=== PATIENT | male | born 1965 | race Two or more races ===

== ENCOUNTER 2018-06-16 11:58 | Inpatient (IN) | payer OTHER ==
[2018-06-16 12:08] VITALS: BMI 34.7
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
[2018-06-16] MEDS ORDERED: MAGNESIUM HYDROX 2400MG/30ML ORAL SUSPENSION 30 ML CUP PO PRN (13:18)
[2018-06-16] MEDS ORDERED: MAGNESIUM CITRATE 300 ML BOTTLE PO PRN (13:18)
[2018-06-16] MEDS ORDERED: LOPERAMIDE HCL 2 MG CAPSULE PO PRN (13:18)
[2018-06-16] MEDS ORDERED: MENTHOL/PHENOL 1 EACH UD MM PRN (13:18)
[2018-06-16] MEDS ORDERED: P-EPHED 60MG/TRIPROLIDI 2.5MG TABLET PO PRN (13:18)
[2018-06-16] MEDS ORDERED: IBUPROFEN 400 MG TABLET (FP) PO PRN (13:18)
[2018-06-16] MEDS ORDERED: MAG HYDROX/AL HYDROX/SIMETH 30 ML UNIT-DOSE CUP PO PRN (13:18)
[2018-06-16] MEDS ORDERED: guaiFENesin/D-METHORPHAN HB 10 ML UNIT-DOSE CUPS PO PRN (13:18)
[2018-06-16] MEDS ORDERED: ACETAMINOPHEN 325 MG TABLET (FP) PO PRN (13:18)
[2018-06-16] MEDS ORDERED: diazePAM 5 MG TABLET PO ONE (14:15)
[2018-06-16] MEDS ORDERED: METHADONE HCL 10 MG TABLET (FOR DETOX USE ONLY) PO ONE ×2 (14:15→23:00)
[2018-06-16] MEDS: BACLOFEN 10 MG TABLET (FP) PO SCH ×2 (16:24→22:26)
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
--- NOTE | 2018-06-16 18:57 | EKG ---
Test Reason : Blood Pressure : / mmHG Vent. Rate : 053 BPM Atrial Rate : 053 BPM P-R Int : 154 ms QRS Dur : 088 ms QT Int : 414 ms P-R-T Axes : 062 007 020 degrees QTc Int : 388 ms SINUS BRADYCARDIA OTHERWISE NORMAL ECG NO PREVIOUS ECGS AVAILABLE Confirmed by HEIDY ROWE, ATIYA ([id number]) on 06/16/2018 6:56:29 PM Referred By: Radha Bryan Confirmed By:ATIYA MOODY MD
[2018-06-16] MEDS: THIAMINE HCL 100 MG TABLET (FP) PO SCH (22:26)
[2018-06-16] MEDS: MELATONIN 5 MG TABLETS PO PRN (22:27)
[2018-06-16] MEDS: diazePAM 5 MG TABLET PO SCH (22:27)
[2018-06-16] MEDS: NICOTINE POLACRILEX 4 MG GUM BUC PRN (22:28)
[2018-06-16 23:02] LABS: URINE APPEARANCE TURBID; URINE BILIRUBIN NEGATIVE (<2.0 mg/dL); URINE COLOR YELLOW; URINE GLUCOSE (UA) NEGATIVE (NEGATIVE); URINE KETONE TRACE (NEGATIVE); URINE LEUK ESTERASE NEGATIVE (NEGATIVE); URINE NITRITE NEGATIVE (NEGATIVE); URINE PROTEIN NEGATIVE (NEGATIVE)
[2018-06-17] MEDS: BACLOFEN 10 MG TABLET (FP) PO SCH ×3 (05:55→22:07)
[2018-06-17] MEDS: diazePAM 5 MG TABLET PO SCH ×3 (05:55→22:07)
[2018-06-17] MEDS ORDERED: METHADONE HCL 10 MG TABLET (FOR DETOX USE ONLY) PO SCH (10:00)
[2018-06-17] MEDS: NICOTINE 21 MG/24 HOURS TOPICAL PATCH TD SCH (11:06)
[2018-06-17] MEDS: PRENATAL VITAMINS W/ FOLIC ACID TABLET (FP) PO SCH (11:06)
[2018-06-17 11:18] LABS: HEMATOCRIT 46.1 % (35.4-49); HEMOGLOBIN 14.9 GM/dL (11.7-16.9); MCH 31.5 pg (25.7-33.7); MCHC 32.3 g/dl (32.0-35.9); MEAN CELL VOLUME 97.5 fl (80-96); MEAN PLT VOLUME 10.9 fl (7.5-11.1); PLATELET COUNT 184 K/MM3 (134-434); RBC 4.73 M/mm3 (4.00-5.60); RDW 14.4 % (11.9-15.9); WHITE BLOOD COUNT 14.5 K/mm3 (4.0-10.0)
[2018-06-17 11:34] LABS: ALK PHOS 81 U/L (45-117); ANION GAP 5 MMOL/L (8-16); BILIRUBIN,TOTAL 0.4 mg/dL (0.2-1); BLOOD UREA NITROGEN 13 mg/dL (7-18); CALCIUM 9.2 mg/dL (8.5-10.1); CHLORIDE 102 mmol/L (98-107); CO2 29 mmol/L (21-32); GLUCOSE,RANDOM 115 mg/dL (74-106); POTASSIUM 4.3 mmol/L (3.5-5.1); SGOT/AST 16 U/L (15-37); SGPT/ALT 23 U/L (13-61); SODIUM 137 mmol/L (136-145); TOT PROT 7.7 g/dl (6.4-8.2)
[2018-06-17] MEDS ORDERED: NAPROXEN 500 MG TABLET (FP) PO ONE (12:00)
--- NOTE | 2018-06-17 15:56 | PN ---
[facility] CIWA - CIWA Score Nausea/Vomitin-No Nausea/No Vomiting Muscle Tremors: None Anxiety: 4-Mod. Anxious/Guarded Agitation: 4-Moderately Restless Paroxysmal Sweats: 3 Orientation: 0-Oriented Tacttile Disturbances: 3-Moderate Itch/Numb/Burn Auditory Disturbances: 1-Very Mild Visual Disturbances: 0-None Headache: 0-None Present CIWA-Ar Total Score: 15 S COWS - Scale Resting Pulse: 0= [place] 80 or Below Sweatin=Flushed/Facial Moisture Restless Observation: 1= Difficult to Sit Still Pupil Size: 0= Normal to Room Light Bone or Joint Aches: 2= Severe Diffuse Aches Runny Nose/ Eye Tearin= None GI Upset > 30mins: 0= None Tremor Observation of Outstretched Hands: 0= None Yawning Observation: 1= 1-2x During Session Anxiety or Irritability: 2=Irritable/Anxious Goose Flesh Skin: 0=Smooth Skin COWS Score: 8 S Progress Note (SOAP) Subjective: Body Aches, Sweating. Objective: PATIENT A & O X 3, OBSERVED AMBULATING ON UNIT. IN NO ACUTE DISTRESS. 06/17/18 15:53 Vital Signs Temperature 98.1 F 06/17/18 14:13 Pulse Rate 74 06/17/18 14:13 Respiratory Rate 18 06/17/18 14:13 Blood Pressure 123/76 06/17/18 14:13 O2 Sat by Pulse Oximetry (%) Laboratory Tests 06/16/18 06/17/18 06/17/18 23:10 05:45 05:45 WBC 14.5 H RBC 4.73 Hgb 14.9 Hct 46.1 MCV 97.5 H MCH 31.5 MCHC 32.3 RDW 14.4 Plt Count 184 D MPV 10.9 D Sodium Potassium Chloride Carbon Dioxide Anion Gap BUN Creatinine Creat Clearance w eGFR Random Glucose Calcium Total Bilirubin AST ALT Alkaline Phosphatase Total Protein Albumin Urine Color Yellow Urine Appearance Turbid Urine pH 5.0 Ur Specific [place] 1.027 Urine Protein Negative Urine Glucose (UA) Negative Urine Ketones Trace H Urine Blood Negative Urine Nitrite Negative Urine Bilirubin Negative Urine Urobilinogen 2.0 Ur Leukocyte Esterase Negative RPR Titer HIV 1&2 Antibody Screen Negative HIV P24 Antigen Negative 06/17/18 06/17/18 05:45 05:45 WBC RBC Hgb Hct MCV MCH MCHC RDW Plt Count MPV Sodium 137 Potassium 4.3 Chloride 102 Carbon Dioxide 29 Anion Gap 5 L BUN 13 Creatinine 1.0 Creat Clearance w eGFR > 60 Random Glucose 115 H Calcium 9.2 Total Bilirubin 0.4 AST 16 ALT 23 Alkaline Phosphatase 81 Total Protein 7.7 Albumin 4.0 Urine Color Urine Appearance Urine pH Ur Specific [place] Urine Protein Urine Glucose (UA) Urine Ketones Urine Blood Urine Nitrite Urine Bilirubin Urine Urobilinogen Ur Leukocyte Esterase RPR Titer Nonreactive HIV 1&2 Antibody Screen HIV P24 Antigen LABS NOTED. HCV AB RESULT PENDING. 06/17/18 15:55 Assessment: 06/17/18 15:53 WITHDRAWAL SYMPTOMS. LEUKOCYTOSIS. 06/17/18 15:55 Plan: CONTINUE DETOX. REPEAT CBC TOMORROW AM FOR ELEVATED ADMISSION WBC LEVEL.
[2018-06-17] MEDS: THIAMINE HCL 100 MG TABLET (FP) PO SCH (22:07)
[2018-06-17] MEDS: NAPROXEN 500 MG TABLET (FP) PO SCH (22:07)
[2018-06-18] MEDS: diazePAM 5 MG TABLET PO PRN (03:40)
[2018-06-18] MEDS: BACLOFEN 10 MG TABLET (FP) PO SCH ×3 (05:59→22:01)
[2018-06-18] MEDS: hydrOXYzine PAMOATE 50 MG CAPSULE (FP) PO PRN (06:01)
[2018-06-18] MEDS: NICOTINE POLACRILEX 4 MG GUM BUC PRN (06:02)
[2018-06-18 10:39] LABS: BASO % 0.4 % (0-2.0); HEMATOCRIT 41.5 % (35.4-49); HEMOGLOBIN 14.6 GM/dL (11.7-16.9); LYMPH % 30.7 % (8-40); MCH 33.5 pg (25.7-33.7); MCHC 35.2 g/dl (32.0-35.9); MEAN CELL VOLUME 95.1 fl (80-96); MEAN PLT VOLUME 11.2 fl (7.5-11.1); MONO % 8.2 % (3.8-10.2); NEUT % 58.7 % (42.8-82.8); PLATELET COUNT 182 K/MM3 (134-434); RBC 4.36 M/mm3 (4.00-5.60); RDW 14.6 % (11.9-15.9); WHITE BLOOD COUNT 9.4 K/mm3 (4.0-10.0)
[2018-06-18] MEDS: NICOTINE 21 MG/24 HOURS TOPICAL PATCH TD SCH (10:47)
[2018-06-18] MEDS: PRENATAL VITAMINS W/ FOLIC ACID TABLET (FP) PO SCH (10:47)
[2018-06-18] MEDS: NAPROXEN 500 MG TABLET (FP) PO SCH ×2 (10:47→22:01)
[2018-06-18] MEDS: METHADONE HCL 5 MG TABLET (FOR DETOX USE ONLY) PO SCH (10:48)
[2018-06-18] MEDS: diazePAM 5 MG TABLET PO SCH ×2 (10:48→22:01)
--- NOTE | 2018-06-18 14:44 | PN ---
[facility] CIWA - CIWA Score Nausea/Vomitin-Mild Nausea/No Vomiting Muscle Tremors: 2 Anxiety: 3 Agitation: 2 Paroxysmal Sweats: 2 Orientation: 0-Oriented Tacttile Disturbances: 0-None Auditory Disturbances: 0-None Visual Disturbances: 0-None Headache: 1-Very Mild CIWA-Ar Total Score: 11 S COWS - Scale Resting Pulse: 0= [place] 80 or Below Sweatin= Chills/Flushing Restless Observation: 1= Difficult to Sit Still Pupil Size: 0= Normal to Room Light Bone or Joint Aches: 2= Severe Diffuse Aches Runny Nose/ Eye Tearin= Runny Nose/Eyes GI Upset > 30mins: 1= Stomach Cramp Tremor Observation of Outstretched Hands: 2= Slight Tremor Visible Yawning Observation: 0= None Anxiety or Irritability: 2=Irritable/Anxious Goose Flesh Skin: 0=Smooth Skin COWS Score: 11 [facility] Progress Note (SOAP) Subjective: Chills, sweating, interrupted sleep Objective: 06/18/18 14:42 Last Vital Signs Temp Pulse Resp BP Pulse Ox 97.5 F L 58 L 18 123/70 06/18/18 13:23 06/18/18 13:23 06/18/18 13:23 06/18/18 13:23 Laboratory Tests 06/16/18 06/17/18 06/17/18 23:10 05:45 05:45 WBC 14.5 H RBC 4.73 Hgb 14.9 Hct 46.1 MCV 97.5 H MCH 31.5 MCHC 32.3 RDW 14.4 Plt Count 184 D MPV 10.9 D Absolute Neuts (auto) Neutrophils % Lymphocytes % Monocytes % Eosinophils % Basophils % Nucleated RBC % Sodium Potassium Chloride Carbon Dioxide Anion Gap BUN Creatinine Creat Clearance w eGFR Random Glucose Calcium Total Bilirubin AST ALT Alkaline Phosphatase Total Protein Albumin Urine Color Yellow Urine Appearance Turbid Urine pH 5.0 Ur Specific [place] 1.027 Urine Protein Negative Urine Glucose (UA) Negative Urine Ketones Trace H Urine Blood Negative Urine Nitrite Negative Urine Bilirubin Negative Urine Urobilinogen 2.0 Ur Leukocyte Esterase Negative RPR Titer Hep C Ab Diagnostic HIV 1&2 Antibody Screen Negative HIV P24 Antigen Negative 06/17/18 06/17/18 06/17/18 05:45 05:45 06:13 WBC RBC Hgb Hct MCV MCH MCHC RDW Plt Count MPV Absolute Neuts (auto) Neutrophils % Lymphocytes % Monocytes % Eosinophils % Basophils % Nucleated RBC % Sodium 137 Potassium 4.3 Chloride 102 Carbon Dioxide 29 Anion Gap 5 L BUN 13 Creatinine 1.0 Creat Clearance w eGFR > 60 Random Glucose 115 H Calcium 9.2 Total Bilirubin 0.4 AST 16 ALT 23 Alkaline Phosphatase 81 Total Protein 7.7 Albumin 4.0 Urine Color Urine Appearance Urine pH Ur Specific [place] Urine Protein Urine Glucose (UA) Urine Ketones Urine Blood Urine Nitrite Urine Bilirubin Urine Urobilinogen Ur Leukocyte Esterase RPR Titer Nonreactive Hep C Ab Diagnostic 0.2 HIV 1&2 Antibody Screen HIV P24 Antigen 06/18/18 07:30 WBC 9.4 RBC 4.36 Hgb 14.6 Hct 41.5 MCV 95.1 MCH 33.5 MCHC 35.2 RDW 14.6 Plt Count 182 MPV 11.2 H Absolute Neuts (auto) 5.5 Neutrophils % 58.7 Lymphocytes % 30.7 Monocytes % 8.2 Eosinophils % 2.0 Basophils % 0.4 Nucleated RBC % 0 Sodium Potassium Chloride Carbon Dioxide Anion Gap BUN Creatinine Creat Clearance w eGFR Random Glucose Calcium Total Bilirubin AST ALT Alkaline Phosphatase Total Protein Albumin Urine Color Urine Appearance Urine pH Ur Specific [place] Urine Protein Urine Glucose (UA) Urine Ketones Urine Blood Urine Nitrite Urine Bilirubin Urine Urobilinogen Ur Leukocyte Esterase RPR Titer Hep C Ab Diagnostic HIV 1&2 Antibody Screen HIV P24 Antigen Labs reviewed Assessment: 06/18/18 14:43 Withdrawal symptoms Plan: Continue detox Encouraged PO water intake
[2018-06-18] MEDS: THIAMINE HCL 100 MG TABLET (FP) PO SCH (22:01)
[2018-06-19] MEDS: diazePAM 5 MG TABLET PO PRN ×2 (02:00→13:18)
[2018-06-19] MEDS: BACLOFEN 10 MG TABLET (FP) PO SCH ×3 (07:52→22:31)
--- NOTE | 2018-06-19 10:18 | PN ---
S Progress Note (SOAP) Subjective: anxiety body aches tremor irritable Objective: 06/19/18 10:17 Vital Signs Temperature 97.5 F L 06/19/18 09:24 Pulse Rate 62 06/19/18 09:24 Respiratory Rate 18 06/19/18 09:24 Blood Pressure 112/72 06/19/18 09:24 O2 Sat by Pulse Oximetry (%) Laboratory Last Values WBC 9.4 K/mm3 (4.0-10.0) 06/18/18 07:30 RBC 4.36 M/mm3 (4.00-5.60) 06/18/18 07:30 Hgb 14.6 GM/dL (11.7-16.9) 06/18/18 07:30 Hct 41.5 % (35.4-49) 06/18/18 07:30 MCV 95.1 fl (80-96) 06/18/18 07:30 MCH 33.5 pg (25.7-33.7) 06/18/18 07:30 MCHC 35.2 g/dl (32.0-35.9) 06/18/18 07:30 RDW 14.6 % (11.9-15.9) 06/18/18 07:30 Plt Count 182 K/MM3 (134-434) 06/18/18 07:30 MPV 11.2 fl (7.5-11.1) H 06/18/18 07:30 Absolute Neuts (auto) 5.5 K/mm3 (1.5-8.0) 06/18/18 07:30 Neutrophils % 58.7 % (42.8-82.8) 06/18/18 07:30 Lymphocytes % 30.7 % (8-40) 06/18/18 07:30 Monocytes % 8.2 % (3.8-10.2) 06/18/18 07:30 Eosinophils % 2.0 % (0-4.5) 06/18/18 07:30 Basophils % 0.4 % (0-2.0) 06/18/18 07:30 Nucleated RBC % 0 % (0-0) 06/18/18 07:30 Sodium 137 mmol/L (136-145) 06/17/18 05:45 Potassium 4.3 mmol/L (3.5-5.1) 06/17/18 05:45 Chloride 102 mmol/L (98-107) 06/17/18 05:45 Carbon Dioxide 29 mmol/L (21-32) 06/17/18 05:45 Anion Gap 5 MMOL/L (8-16) L 06/17/18 05:45 BUN 13 mg/dL (7-18) 06/17/18 05:45 Creatinine 1.0 mg/dL (0.55-1.3) 06/17/18 05:45 Creat Clearance w eGFR > 60 (>60) 06/17/18 05:45 Random Glucose 115 mg/dL (74-106) H 06/17/18 05:45 Calcium 9.2 mg/dL (8.5-10.1) 06/17/18 05:45 Total Bilirubin 0.4 mg/dL (0.2-1) 06/17/18 05:45 AST 16 U/L (15-37) 06/17/18 05:45 ALT 23 U/L (13-61) 06/17/18 05:45 Alkaline Phosphatase 81 U/L (45-117) 06/17/18 05:45 Total Protein 7.7 g/dl (6.4-8.2) 06/17/18 05:45 Albumin 4.0 g/dl (3.4-5.0) 06/17/18 05:45 Urine Color Yellow 06/16/18 23:10 Urine Appearance Turbid 06/16/18 23:10 Urine pH 5.0 (5.0-8.0) 06/16/18 23:10 Ur Specific [place] 1.027 (1.010-1.035) 06/16/18 23:10 Urine Protein Negative (NEGATIVE) 06/16/18 23:10 Urine Glucose (UA) Negative (NEGATIVE) 06/16/18 23:10 Urine Ketones Trace (NEGATIVE) H 06/16/18 23:10 Urine Blood Negative (NEGATIVE) 06/16/18 23:10 Urine Nitrite Negative (NEGATIVE) 06/16/18 23:10 Urine Bilirubin Negative (<2.0 mg/dL) 06/16/18 23:10 Urine Urobilinogen 2.0 mg/dL (0.2-1.0) 06/16/18 23:10 Ur Leukocyte Esterase Negative (NEGATIVE) 06/16/18 23:10 RPR Titer Nonreactive (NONREACTIVE) 06/17/18 05:45 Hep C Ab Diagnostic 0.2 s/co ratio (0.0-0.9) 06/17/18 06:13 HIV 1&2 Antibody Screen Negative 06/17/18 05:45 HIV P24 Antigen Negative 06/17/18 05:45 lab noted Assessment: 06/19/18 10:18 alcohol and opiate withdrawal sx Plan: continue detox
[2018-06-19] MEDS: NICOTINE 21 MG/24 HOURS TOPICAL PATCH TD SCH (10:22)
[2018-06-19] MEDS: diazePAM 5 MG TABLET PO SCH ×2 (10:23→22:30)
[2018-06-19] MEDS: NAPROXEN 500 MG TABLET (FP) PO SCH ×2 (10:23→22:30)
[2018-06-19] MEDS: PRENATAL VITAMINS W/ FOLIC ACID TABLET (FP) PO SCH (10:23)
[2018-06-19] MEDS: METHADONE HCL 5 MG TABLET (FOR DETOX USE ONLY) PO SCH (10:23)
[2018-06-19] MEDS ORDERED: COLLOIDAL OATMEAL 1 BAR EACH TP PRN (13:36)
[2018-06-19] MEDS: hydrOXYzine PAMOATE 50 MG CAPSULE (FP) PO PRN (18:28)
[2018-06-19] MEDS: THIAMINE HCL 100 MG TABLET (FP) PO SCH (22:31)
[2018-06-19] MEDS: MELATONIN 5 MG TABLETS PO PRN (22:31)
[2018-06-20] MEDS: hydrOXYzine PAMOATE 50 MG CAPSULE (FP) PO PRN ×2 (02:58→13:27)
[2018-06-20] MEDS: BACLOFEN 10 MG TABLET (FP) PO SCH ×3 (06:17→22:19)
[2018-06-20] MEDS ORDERED: diazePAM 5 MG TABLET PO SCH (10:00)
[2018-06-20] MEDS ORDERED: METHADONE HCL 10 MG TABLET (FOR DETOX USE ONLY) PO SCH (10:00)
[2018-06-20] MEDS: NAPROXEN 500 MG TABLET (FP) PO SCH ×2 (10:31→22:18)
[2018-06-20] MEDS: PRENATAL VITAMINS W/ FOLIC ACID TABLET (FP) PO SCH (10:31)
[2018-06-20] MEDS: NICOTINE 21 MG/24 HOURS TOPICAL PATCH TD SCH (10:31)
--- NOTE | 2018-06-20 15:28 | PN ---
[facility] Progress Note (SOAP) Subjective: Body Aches. Objective: PATIENT A & O X 3, OBSERVED AMBULATING ON UNIT. IN NO ACUTE DISTRESS. 06/20/18 15:27 Vital Signs Temperature 99.1 F 06/20/18 13:25 Pulse Rate 72 06/20/18 13:25 Respiratory Rate 18 06/20/18 13:25 Blood Pressure 100/72 06/20/18 13:25 O2 Sat by Pulse Oximetry (%) Laboratory Tests 06/16/18 06/17/18 06/17/18 23:10 05:45 05:45 WBC 14.5 H RBC 4.73 Hgb 14.9 Hct 46.1 MCV 97.5 H MCH 31.5 MCHC 32.3 RDW 14.4 Plt Count 184 D MPV 10.9 D Absolute Neuts (auto) Neutrophils % Lymphocytes % Monocytes % Eosinophils % Basophils % Nucleated RBC % Sodium Potassium Chloride Carbon Dioxide Anion Gap BUN Creatinine Creat Clearance w eGFR Random Glucose Calcium Total Bilirubin AST ALT Alkaline Phosphatase Total Protein Albumin Urine Color Yellow Urine Appearance Turbid Urine pH 5.0 Ur Specific [place] 1.027 Urine Protein Negative Urine Glucose (UA) Negative Urine Ketones Trace H Urine Blood Negative Urine Nitrite Negative Urine Bilirubin Negative Urine Urobilinogen 2.0 Ur Leukocyte Esterase Negative RPR Titer Hep C Ab Diagnostic HIV 1&2 Antibody Screen Negative HIV P24 Antigen Negative 06/17/18 06/17/18 06/17/18 05:45 05:45 06:13 WBC RBC Hgb Hct MCV MCH MCHC RDW Plt Count MPV Absolute Neuts (auto) Neutrophils % Lymphocytes % Monocytes % Eosinophils % Basophils % Nucleated RBC % Sodium 137 Potassium 4.3 Chloride 102 Carbon Dioxide 29 Anion Gap 5 L BUN 13 Creatinine 1.0 Creat Clearance w eGFR > 60 Random Glucose 115 H Calcium 9.2 Total Bilirubin 0.4 AST 16 ALT 23 Alkaline Phosphatase 81 Total Protein 7.7 Albumin 4.0 Urine Color Urine Appearance Urine pH Ur Specific [place] Urine Protein Urine Glucose (UA) Urine Ketones Urine Blood Urine Nitrite Urine Bilirubin Urine Urobilinogen Ur Leukocyte Esterase RPR Titer Nonreactive Hep C Ab Diagnostic 0.2 HIV 1&2 Antibody Screen HIV P24 Antigen 06/18/18 07:30 WBC 9.4 RBC 4.36 Hgb 14.6 Hct 41.5 MCV 95.1 MCH 33.5 MCHC 35.2 RDW 14.6 Plt Count 182 MPV 11.2 H Absolute Neuts (auto) 5.5 Neutrophils % 58.7 Lymphocytes % 30.7 Monocytes % 8.2 Eosinophils % 2.0 Basophils % 0.4 Nucleated RBC % 0 Sodium Potassium Chloride Carbon Dioxide Anion Gap BUN Creatinine Creat Clearance w eGFR Random Glucose Calcium Total Bilirubin AST ALT Alkaline Phosphatase Total Protein Albumin Urine Color Urine Appearance Urine pH Ur Specific [place] Urine Protein Urine Glucose (UA) Urine Ketones Urine Blood Urine Nitrite Urine Bilirubin Urine Urobilinogen Ur Leukocyte Esterase RPR Titer Hep C Ab Diagnostic HIV 1&2 Antibody Screen HIV P24 Antigen LABS NOTED. WBC NOTED TO BE WITHIN NORMAL LIMITS ON REPEAT CBC. Assessment: 06/20/18 15:28 WITHDRAWAL SYMPTOMS. Plan: CONTINUE DETOX.
[2018-06-20] MEDS: THIAMINE HCL 100 MG TABLET (FP) PO SCH (22:19)
[2018-06-20] MEDS: MELATONIN 5 MG TABLETS PO PRN (22:19)
[2018-06-21] MEDS: BACLOFEN 10 MG TABLET (FP) PO SCH (05:23)
[2018-06-21] MEDS ORDERED: METHADONE HCL 5 MG TABLET (FOR DETOX USE ONLY) PO SCH (06:00)
[2018-06-21 06:08] VITALS: BP 114/67; PULSE 47; TEMP 97.5
--- NOTE | 2018-06-21 09:32 | DS ---
[facility] Detox Discharge Summary Admission Date: 06/16/18 Discharge Date: 06/21/18 - History Present History: Alcohol Dependence, Opioid Dependence Additional Comments: 52 years old male admitted o 06/16/18 for alcohol and opiate withdrawal stabilization completed detox regimen tolerated well alert no acute distress aftercare as per counselor arrangement - Physical Exam Results Vital Signs: Vital Signs Temperature 97.5 F L 06/21/18 06:08 Pulse Rate 47 L 06/21/18 06:08 Respiratory Rate 18 06/21/18 06:08 Blood Pressure 114/67 06/21/18 06:08 O2 Sat by Pulse Oximetry (%) Pertinent Admission Physical Exam Findings: alcohol and opiate withdrawal sx Laboratory Last Values WBC 9.4 K/mm3 (4.0-10.0) 06/18/18 07:30 RBC 4.36 M/mm3 (4.00-5.60) 06/18/18 07:30 Hgb 14.6 GM/dL (11.7-16.9) 06/18/18 07:30 Hct 41.5 % (35.4-49) 06/18/18 07:30 MCV 95.1 fl (80-96) 06/18/18 07:30 MCH 33.5 pg (25.7-33.7) 06/18/18 07:30 MCHC 35.2 g/dl (32.0-35.9) 06/18/18 07:30 RDW 14.6 % (11.9-15.9) 06/18/18 07:30 Plt Count 182 K/MM3 (134-434) 06/18/18 07:30 MPV 11.2 fl (7.5-11.1) H 06/18/18 07:30 Absolute Neuts (auto) 5.5 K/mm3 (1.5-8.0) 06/18/18 07:30 Neutrophils % 58.7 % (42.8-82.8) 06/18/18 07:30 Lymphocytes % 30.7 % (8-40) 06/18/18 07:30 Monocytes % 8.2 % (3.8-10.2) 06/18/18 07:30 Eosinophils % 2.0 % (0-4.5) 06/18/18 07:30 Basophils % 0.4 % (0-2.0) 06/18/18 07:30 Nucleated RBC % 0 % (0-0) 06/18/18 07:30 Sodium 137 mmol/L (136-145) 06/17/18 05:45 Potassium 4.3 mmol/L (3.5-5.1) 06/17/18 05:45 Chloride 102 mmol/L (98-107) 06/17/18 05:45 Carbon Dioxide 29 mmol/L (21-32) 06/17/18 05:45 Anion Gap 5 MMOL/L (8-16) L 06/17/18 05:45 BUN 13 mg/dL (7-18) 06/17/18 05:45 Creatinine 1.0 mg/dL (0.55-1.3) 06/17/18 05:45 Creat Clearance w eGFR > 60 (>60) 06/17/18 05:45 Random Glucose 115 mg/dL (74-106) H 06/17/18 05:45 Calcium 9.2 mg/dL (8.5-10.1) 06/17/18 05:45 Total Bilirubin 0.4 mg/dL (0.2-1) 06/17/18 05:45 AST 16 U/L (15-37) 06/17/18 05:45 ALT 23 U/L (13-61) 06/17/18 05:45 Alkaline Phosphatase 81 U/L (45-117) 06/17/18 05:45 Total Protein 7.7 g/dl (6.4-8.2) 06/17/18 05:45 Albumin 4.0 g/dl (3.4-5.0) 06/17/18 05:45 Urine Color Yellow 06/16/18 23:10 Urine Appearance Turbid 06/16/18 23:10 Urine pH 5.0 (5.0-8.0) 06/16/18 23:10 Ur Specific [place] 1.027 (1.010-1.035) 06/16/18 23:10 Urine Protein Negative (NEGATIVE) 06/16/18 23:10 Urine Glucose (UA) Negative (NEGATIVE) 06/16/18 23:10 Urine Ketones Trace (NEGATIVE) H 06/16/18 23:10 Urine Blood Negative (NEGATIVE) 06/16/18 23:10 Urine Nitrite Negative (NEGATIVE) 06/16/18 23:10 Urine Bilirubin Negative (<2.0 mg/dL) 06/16/18 23:10 Urine Urobilinogen 2.0 mg/dL (0.2-1.0) 06/16/18 23:10 Ur Leukocyte Esterase Negative (NEGATIVE) 06/16/18 23:10 RPR Titer Nonreactive (NONREACTIVE) 06/17/18 05:45 Hep C Ab Diagnostic 0.2 s/co ratio (0.0-0.9) 06/17/18 06:13 HIV 1&2 Antibody Screen Negative 06/17/18 05:45 HIV P24 Antigen Negative 06/17/18 05:45 lab noted - Treatment Hospital Course: Detox Protocol Followed, Detoxed Safely, Responded well, Discharged Condition Good, Rehab Referral Accepted Patient has Accepted a Rehab Referral to: as per counselor arrangement - Medication Discharge Medications: Ambulatory Orders NK [No Known Home Medication] 06/16/18 - Diagnosis (1) Nicotine dependence Status: Acute Qualifiers: Nicotine product type: cigarettes Substance use status: in withdrawal Qualified Code(s): F17.213 - Nicotine dependence, cigarettes, with withdrawal (2) Opioid dependence with withdrawal Status: Acute (3) Substance induced mood disorder Status: Suspected - AMA Did Patient Leave Against Medical Advice: No
== END 2018-06-21 08:40 | disposition home or self-care (01) | DRG 773 ==
LOC: YASAS 11:58 → Y3N 13:33
PROC: HZ2ZZZZ Detoxification Services for Substance Abuse Treatment (ICD-10-PCS; principal; 2018-06-16)
DX: F11.23 Opioid dependence with withdrawal (principal); F10.230 Alcohol dependence with withdrawal, uncomplicated; F17.213 Nicotine dependence, cigarettes, with withdrawal; F19.24 Other psychoactive substance dependence with psychoactive substance-induced mood disorder; F31.81 Bipolar II disorder; D72.829 Elevated white blood cell count, unspecified
CPT/HCPCS: 36415; 80053; 81003; 85025; 85027; 86593; 86803; 87389; 93005; 93010; J0475

== ENCOUNTER 2018-09-15 15:45 | Inpatient (IN) | payer OTHER ==
[2018-09-15 17:14] VITALS: BMI 33.6
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
[2018-09-15] MEDS ORDERED: chlordiazePOXIDE HCL 10 MG CAPSULE PO PRN (21:17)
[2018-09-15] MEDS ORDERED: DICYCLOMINE HCL 10 MG CAPSULE PO PRN (21:17)
[2018-09-15] MEDS ORDERED: MAGNESIUM CITRATE 300 ML BOTTLE PO PRN (21:17)
[2018-09-15] MEDS ORDERED: MENTHOL/PHENOL 1 EACH UD MM PRN (21:17)
[2018-09-15] MEDS ORDERED: hydrOXYzine PAMOATE 25 MG CAPSULE (FP) PO PRN (21:17)
[2018-09-15] MEDS ORDERED: MAGNESIUM HYDROX 2400MG/30ML ORAL SUSPENSION 30 ML CUP PO PRN (21:17)
[2018-09-15] MEDS ORDERED: ACETAMINOPHEN 325 MG TABLET (FP) PO PRN ×2 (21:17)
[2018-09-15] MEDS ORDERED: ONDANSETRON *ODT* 4 MG TABLET SL PRN (21:17)
[2018-09-15] MEDS ORDERED: MAG HYDROX/AL HYDROX/SIMETH 30 ML UNIT-DOSE CUP PO PRN (21:17)
[2018-09-15] MEDS ORDERED: NALOXONE HCL 0.4 MG/ML VIAL IVPUSH PRN (21:17)
[2018-09-15] MEDS ORDERED: IBUPROFEN 400 MG TABLET (FP) PO PRN (21:17)
[2018-09-15] MEDS ORDERED: NICOTINE POLACRILEX 2 MG GUM BUC PRN (21:17)
[2018-09-15] MEDS ORDERED: P-EPHED 60MG/TRIPROLIDI 2.5MG TABLET PO PRN (21:17)
[2018-09-15] MEDS ORDERED: METHOCARBAMOL 500 MG TABLET PO PRN (21:17)
[2018-09-15] MEDS ORDERED: BISMUTH SUBSALICYLATE 524 MG/30 ML UD PO PRN (21:17)
[2018-09-15] MEDS ORDERED: MELATONIN 5 MG TABLETS PO PRN (21:17)
[2018-09-15] MEDS: chlordiazePOXIDE HCL 25 MG CAPSULE PO SCH (22:17)
[2018-09-15] MEDS: THIAMINE HCL 100 MG TABLET (FP) PO SCH (22:48)
[2018-09-15] MEDS ORDERED: METHADONE HCL 10 MG TABLET (FOR DETOX USE ONLY) PO ONE (23:00)
[2018-09-16] MEDS: chlordiazePOXIDE HCL 25 MG CAPSULE PO SCH ×2 (05:27→14:38)
[2018-09-16] MEDS ORDERED: METHADONE HCL 10 MG TABLET (FOR DETOX USE ONLY) PO ONE (10:00)
[2018-09-16] MEDS: PRENATAL VITAMINS W/ FOLIC ACID TABLET (FP) PO SCH (10:28)
[2018-09-16] MEDS: NICOTINE 14 MG/24 HOURS TOPICAL PATCH TD SCH (10:29)
--- NOTE | 2018-09-16 16:41 | PN ---
[facility] CIWA - CIWA Score Nausea/Vomitin-Mild Nausea/No Vomiting Muscle Tremors: 3 Anxiety: 2 Agitation: 2 Paroxysmal Sweats: 3 Orientation: 0-Oriented Tacttile Disturbances: 0-None Auditory Disturbances: 0-None Visual Disturbances: 0-None Headache: 0-None Present CIWA-Ar Total Score: 11 S COWS - Scale Resting Pulse: 0= [place] 80 or Below Sweatin=Flushed/Facial Moisture Restless Observation: 0= Sits Still Pupil Size: 0= Normal to Room Light Bone or Joint Aches: 1= Mild Discomfort Runny Nose/ Eye Tearin= Nasal Congestion GI Upset > 30mins: 1= Stomach Cramp Tremor Observation of Outstretched Hands: 2= Slight Tremor Visible Yawning Observation: 0= None Anxiety or Irritability: 1=Feels Anxious/Irritable Goose Flesh Skin: 0=Smooth Skin COWS Score: 8 [facility] Progress Note (SOAP) Subjective: sweats abd cramp Objective: 09/16/18 16:39 A & O x 3 in bed, noted to have taken off his scrubs due to sweats no acute distress noted Vital Signs Temperature 98.6 F 09/16/18 13:55 Pulse Rate 67 09/16/18 13:55 Respiratory Rate 18 09/16/18 13:55 Blood Pressure 134/74 09/16/18 13:55 O2 Sat by Pulse Oximetry (%) No lab results at this time Assessment: 09/16/18 16:55 withdrawal sx Plan: labs ordered for a.m
--- NOTE | 2018-09-16 17:09 | CONSULT ---
[facility] Psychiatric Consult - Data Date of interview: 09/16/18 Admission source: [facility] Identifying data: Patient is approached at bedside for psychiatric evaluation. Mr Najera declines. Nursing staff is made aware.
[2018-09-16] MEDS: THIAMINE HCL 100 MG TABLET (FP) PO SCH (22:18)
[2018-09-16] MEDS: chlordiazePOXIDE 5 MG CAPSULE PO SCH (22:18)
[2018-09-17] MEDS: chlordiazePOXIDE 5 MG CAPSULE PO SCH ×2 (06:15→14:48)
[2018-09-17] MEDS: cloNIDine HCL 0.1 MG TABLET PO PRN ×2 (07:33→17:55)
[2018-09-17] MEDS ORDERED: METHADONE HCL 10 MG TABLET (FOR DETOX USE ONLY) PO ONE (10:00)
[2018-09-17] MEDS: PRENATAL VITAMINS W/ FOLIC ACID TABLET (FP) PO SCH (10:38)
[2018-09-17] MEDS: NICOTINE 14 MG/24 HOURS TOPICAL PATCH TD SCH (10:39)
--- NOTE | 2018-09-17 10:51 | PN ---
[facility] CIWA - CIWA Score Nausea/Vomitin-No Nausea/No Vomiting Muscle Tremors: 2 Anxiety: 2 Agitation: 1-Slight > Activity Paroxysmal Sweats: 1-Minimal Palms Moist Orientation: 0-Oriented Tacttile Disturbances: 0-None Auditory Disturbances: 0-None Visual Disturbances: 0-None Headache: 1-Very Mild CIWA-Ar Total Score: 7 S COWS - Scale Resting Pulse: 0= [place] 80 or Below Sweatin= Chills/Flushing Restless Observation: 0= Sits Still Pupil Size: 0= Normal to Room Light Bone or Joint Aches: 1= Mild Discomfort Runny Nose/ Eye Tearin= None GI Upset > 30mins: 0= None Tremor Observation of Outstretched Hands: 1= Tremor [place], Not Seen Yawning Observation: 0= None Anxiety or Irritability: 1=Feels Anxious/Irritable Goose Flesh Skin: 0=Smooth Skin COWS Score: 4 [facility] Progress Note (SOAP) Subjective: feeling ok discuss medication assisted treatment maintenance program Objective: 09/17/18 10:51 Vital Signs Temperature 98.6 F 09/17/18 09:50 Pulse Rate 64 09/17/18 09:50 Respiratory Rate 18 09/17/18 09:50 Blood Pressure 132/83 09/17/18 09:50 O2 Sat by Pulse Oximetry (%) lab see 06/201809/17/18 10:53 Assessment: 09/17/18 10:54 withdrawal sx Plan: continue detox
[2018-09-17] MEDS ORDERED: chlordiazePOXIDE HCL 10 MG CAPSULE PO PRN (21:00)
[2018-09-17] MEDS: chlordiazePOXIDE HCL 10 MG CAPSULE PO SCH (22:00)
[2018-09-17] MEDS: THIAMINE HCL 100 MG TABLET (FP) PO SCH (22:43)
[2018-09-18] MEDS: chlordiazePOXIDE HCL 10 MG CAPSULE PO SCH (06:47)
[2018-09-18 09:03] VITALS: BP 125/68; PULSE 69; TEMP 97.3
[2018-09-18] MEDS ORDERED: METHADONE HCL 10 MG TABLET (FOR DETOX USE ONLY) PO ONE (10:00)
[2018-09-18] MEDS: PRENATAL VITAMINS W/ FOLIC ACID TABLET (FP) PO SCH (10:18)
[2018-09-18] MEDS: NICOTINE 14 MG/24 HOURS TOPICAL PATCH TD SCH (10:18)
--- NOTE | 2018-09-18 17:22 | PN ---
[facility] Progress Note (SOAP) Subjective: Anxious, Body Aches, Restless. Objective: PATIENT A & O X 3, OBSERVED AMBULATING ON UNIT. IN NO ACUTE DISTRESS. 09/18/18 17:20 Vital Signs Temperature 97.3 F L 09/18/18 09:02 Pulse Rate 69 09/18/18 09:02 Respiratory Rate 18 09/18/18 09:02 Blood Pressure 125/68 09/18/18 09:02 O2 Sat by Pulse Oximetry (%) PATIENT REFUSED TO HAVE ADMISSION LABS DRAWN. 09/18/18 17:21 Assessment: 09/18/18 17:21 WITHDRAWAL SYMPTOMS. Plan: CONTINUE DETOX.
--- NOTE | 2018-09-18 17:26 | DS ---
[facility] Detox Discharge Summary Admission Date: 09/15/18 Discharge Date: 09/18/18 - History Present History: Alcohol Dependence, Opioid Dependence Additional Comments: PATIENT DOES NOT WISH TO REMAIN TO COMPLETE DETOX REGIMEN. RISKS OF LEAVING DETOX UNIT AGAINST MEDICAL ADVICE AND PRIOR TO COMPLETION OF DETOX REGIMEN EXPLAINED TO PATIENT. PATIENT ADVISED TO GO IMMEDIATELY TO NEAREST ER SHOULD ANY INTOLERABLE WITHDRAWAL / DETOX SYMPTOMS DEVELOP AT ANY TIME. PATIENT VERBALIZED UNDERSTANDING OF ALL INFORMATION / RECOMMENDATIONS PRESENTED TO HIM PRIOR TO DEPARTURE FROM DETOX UNIT. PATIENT LEFT DETOX UNIT IN STABLE MEDICAL CONDITION. Pertinent Past History: Depression, Bipolar II Disorder, P.T.S.D., Anxiety. - Physical Exam Results Vital Signs: Vital Signs Temperature 97.3 F L 09/18/18 09:02 Pulse Rate 69 09/18/18 09:02 Respiratory Rate 18 09/18/18 09:02 Blood Pressure 125/68 09/18/18 09:02 O2 Sat by Pulse Oximetry (%) Pertinent Admission Physical Exam Findings: WITHDRAWAL SYMPTOMS. PATIENT REFUSED TO HAVE ADMISSION LABS DRAWN. - Treatment Hospital Course: Detox Protocol Followed, Detoxed Safely - Medication Discharge Medications: Ambulatory Orders NK [No Known Home Medication] 06/16/18 - Diagnosis (1) Alcohol dependence with uncomplicated withdrawal Status: Acute (2) Nicotine dependence Status: Acute Qualifiers: Nicotine product type: cigarettes Substance use status: in withdrawal Qualified Code(s): F17.213 - Nicotine dependence, cigarettes, with withdrawal (3) Opioid dependence with withdrawal Status: Acute (4) Bipolar II disorder Status: Chronic (5) Cocaine dependence Status: Chronic Qualifiers: Substance use status: uncomplicated Qualified Code(s): F14.20 - Cocaine dependence, uncomplicated (6) Substance induced mood disorder Status: Suspected - AMA Did Patient Leave Against Medical Advice: Yes (PATIENT DID NOT WISH TO REMAIN TO COMPLETE DETOX REGIMEN.)
[2018-09-19] MEDS ORDERED: METHADONE HCL 5 MG TABLET (FOR DETOX USE ONLY) PO ONE (06:00)
== END 2018-09-18 10:18 | disposition left against medical advice (07) | DRG 770 ==
LOC: YASAS 15:45 → Y3N 21:16
PROVIDERS: ADMIT Surgery; ATTEND Surgery
PROC: HZ2ZZZZ Detoxification Services for Substance Abuse Treatment (ICD-10-PCS; principal; 2018-09-15)
DX: F11.23 Opioid dependence with withdrawal (principal); F10.230 Alcohol dependence with withdrawal, uncomplicated; F14.20 Cocaine dependence, uncomplicated; F17.213 Nicotine dependence, cigarettes, with withdrawal; F31.81 Bipolar II disorder; F19.24 Other psychoactive substance dependence with psychoactive substance-induced mood disorder
CPT/HCPCS: J0735

== ENCOUNTER 2019-03-09 13:13 | Inpatient (IN) | payer OTHER ==
[2019-03-09 19:30] VITALS: BMI 34.2
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
[2019-03-09] MEDS ORDERED: MAGNESIUM CITRATE 300 ML BOTTLE PO PRN (21:11)
[2019-03-09] MEDS ORDERED: P-EPHED 60MG/TRIPROLIDI 2.5MG TABLET PO PRN (21:11)
[2019-03-09] MEDS ORDERED: ONDANSETRON *ODT* 4 MG TABLET SL PRN (21:11)
[2019-03-09] MEDS ORDERED: MAGNESIUM HYDROX 2400MG/30ML ORAL SUSPENSION 30 ML CUP PO PRN (21:11)
[2019-03-09] MEDS ORDERED: NICOTINE POLACRILEX 2 MG GUM BUC PRN (21:11)
[2019-03-09] MEDS ORDERED: guaiFENesin 200 MG/10 ML 10 ML UNIT-DOSE CUPS PO PRN (21:11)
[2019-03-09] MEDS ORDERED: NALOXONE HCL 0.4 MG/ML VIAL IM PRN (21:11)
[2019-03-09] MEDS ORDERED: MAG HYDROX/AL HYDROX/SIMETH 30 ML UNIT-DOSE CUP PO PRN (21:11)
[2019-03-09] MEDS ORDERED: BISMUTH SUBSALICYLATE 524 MG/30 ML UD PO PRN (21:11)
[2019-03-09] MEDS ORDERED: ACETAMINOPHEN 325 MG TABLET (FP) PO PRN ×2 (21:11)
[2019-03-09] MEDS ORDERED: METHADONE HCL 10 MG TABLET (FOR DETOX USE ONLY) PO ONE (21:11)
[2019-03-09] MEDS ORDERED: cloNIDine HCL 0.1 MG TABLET PO PRN (21:11)
[2019-03-09] MEDS ORDERED: IBUPROFEN 400 MG TABLET (FP) PO PRN (21:11)
[2019-03-09] MEDS ORDERED: MELATONIN 5 MG TABLETS PO PRN (21:11)
[2019-03-09] MEDS ORDERED: MENTHOL/PHENOL 1 EACH UD MM PRN (21:11)
[2019-03-09] MEDS ORDERED: METHOCARBAMOL 500 MG TABLET PO PRN (21:11)
[2019-03-09] MEDS ORDERED: DICYCLOMINE HCL 10 MG CAPSULE PO PRN (21:11)
[2019-03-09] MEDS: THIAMINE HCL 100 MG TABLET (FP) PO SCH (22:17)
[2019-03-09] MEDS: diazePAM 5 MG TABLET PO SCH (22:18)
[2019-03-10] MEDS: diazePAM 5 MG TABLET PO SCH ×3 (06:55→23:43)
[2019-03-10] MEDS ORDERED: METHADONE HCL 5 MG TABLET (FOR DETOX USE ONLY) ONE (09:00)
[2019-03-10] MEDS ORDERED: METHADONE HCL 10 MG TABLET (FOR DETOX USE ONLY) ONE (09:00)
[2019-03-10] MEDS ORDERED: METHADONE (DETOX) 20 MG, METHADONE (DETOX) 5 MG PO ONE (10:00)
[2019-03-10] MEDS: PRENATAL VITAMINS W/ FOLIC ACID TABLET (FP) PO SCH (10:30)
--- NOTE | 2019-03-10 11:08 | PN ---
S CIWA - CIWA Score Nausea/Vomitin-No Nausea/No Vomiting Muscle Tremors: 2 Anxiety: 2 Agitation: 2 Paroxysmal Sweats: 3 Orientation: 0-Oriented Tacttile Disturbances: 0-None Auditory Disturbances: 0-None Visual Disturbances: 0-None Headache: 1-Very Mild CIWA-Ar Total Score: 10 [facility]HS COWS - Scale Resting Pulse: 0= [place] 80 or Below Sweatin= Chills/Flushing Restless Observation: 1= Difficult to Sit Still Pupil Size: 0= Normal to Room Light Bone or Joint Aches: 2= Severe Diffuse Aches Runny Nose/ Eye Tearin= None GI Upset > 30mins: 0= None Tremor Observation of Outstretched Hands: 2= Slight Tremor Visible Yawning Observation: 1= 1-2x During Session Anxiety or Irritability: 2=Irritable/Anxious Goose Flesh Skin: 0=Smooth Skin COWS Score: 9 [facility] Progress Note (SOAP) Subjective: c/o sweats, anxiety, irritability, and muscle aches. Objective: 03/10/19 11:08 Vital Signs 03/10/19 03/10/19 03/10/19 03:30 06:00 09:40 Temperature 98.1 F 98.4 F Pulse Rate 53 L 63 Respiratory 18 18 18 Rate Blood Pressure 123/85 147/75 Labs pending. Assessment: 03/10/19 11:08 AOX3, in no acute distress. Full ROM, ambulating in the unit. Withdrawal symptoms. Plan: continue detox.
[2019-03-10 11:21] LABS: HEMATOCRIT 40.7 % (35.4-49); HEMOGLOBIN 13.9 GM/dL (11.7-16.9); MCHC 34.2 g/dl (32.0-35.9); MEAN CELL VOLUME 96.5 fl (80-96); MEAN PLT VOLUME 9.7 fl (7.5-11.1); PLATELET COUNT 170 K/MM3 (134-434); RBC 4.21 M/mm3 (4.00-5.60); RDW 13.1 % (11.9-15.9); WHITE BLOOD COUNT 9.1 K/mm3 (4.0-10.0)
[2019-03-10 11:24] LABS: ALBUMIN 3.2 g/dl (3.4-5.0); BILIRUBIN,TOTAL 0.5 mg/dL (0.2-1); CALCIUM 9.2 mg/dL (8.5-10.1); CREATININE 0.7 mg/dL (0.55-1.3); POTASSIUM 4.1 mmol/L (3.5-5.1); TOT PROT 6.1 g/dl (6.4-8.2)
[2019-03-10] MEDS: NICOTINE 21 MG/24 HOURS TOPICAL PATCH TD SCH (14:48)
[2019-03-10] MEDS: THIAMINE HCL 100 MG TABLET (FP) PO SCH (23:43)
[2019-03-11] MEDS: diazePAM 5 MG TABLET PO SCH ×2 (08:20→17:43)
[2019-03-11] MEDS: NICOTINE 21 MG/24 HOURS TOPICAL PATCH TD SCH (09:40)
[2019-03-11] MEDS: PRENATAL VITAMINS W/ FOLIC ACID TABLET (FP) PO SCH (09:40)
[2019-03-11] MEDS: diazePAM 5 MG TABLET PO PRN ×2 (09:44→16:14)
[2019-03-11] MEDS ORDERED: METHADONE HCL 10 MG TABLET (FOR DETOX USE ONLY) PO ONE (10:00)
--- NOTE | 2019-03-11 15:58 | PN ---
S CIWA - CIWA Score Nausea/Vomitin-Mild Nausea/No Vomiting Muscle Tremors: 3 Anxiety: 3 Agitation: 3 Paroxysmal Sweats: 3 Orientation: 0-Oriented Tacttile Disturbances: 0-None Auditory Disturbances: 0-None Visual Disturbances: 0-None Headache: 0-None Present CIWA-Ar Total Score: 13 BHS COWS - Scale Resting Pulse: 0= [place] 80 or Below Sweatin= Chills/Flushing Restless Observation: 1= Difficult to Sit Still Pupil Size: 0= Normal to Room Light Bone or Joint Aches: 2= Severe Diffuse Aches Runny Nose/ Eye Tearin= Runny Nose/Eyes GI Upset > 30mins: 2= Nausea/Diarrhea Tremor Observation of Outstretched Hands: 2= Slight Tremor Visible Yawning Observation: 0= None Anxiety or Irritability: 2=Irritable/Anxious Goose Flesh Skin: 0=Smooth Skin COWS Score: 12 S Progress Note (SOAP) Subjective: Feels ok, medication working Objective: 03/11/19 15:56 Last Vital Signs Temp Pulse Resp BP Pulse Ox 98.2 F 75 18 126/71 03/11/19 13:22 03/11/19 13:22 03/11/19 13:22 03/11/19 13:22 Laboratory Tests 03/10/19 03/10/19 08:00 08:00 WBC 9.1 RBC 4.21 Hgb 13.9 Hct 40.7 MCV 96.5 H MCH 33.0 MCHC 34.2 RDW 13.1 D Plt Count 170 MPV 9.7 D Sodium 138 Potassium 4.1 Chloride 102 Carbon Dioxide 33 H Anion Gap 4 L BUN 11.0 Creatinine 0.7 Est GFR (CKD-EPI)AfAm 126.64 Est GFR (CKD-EPI)NonAf 109.27 Random Glucose 90 Calcium 9.2 Total Bilirubin 0.5 AST 20 ALT 25 Alkaline Phosphatase 67 Total Protein 6.1 L Albumin 3.2 L Labs reviewed Assessment: 03/11/19 15:57 Withdrawal sxs Plan: Continue detox Encouraged PO water intake
[2019-03-11] MEDS: THIAMINE HCL 100 MG TABLET (FP) PO SCH (23:16)
[2019-03-12] MEDS ORDERED: diazePAM 5 MG TABLET PO ONE (06:00)
[2019-03-12] MEDS ORDERED: METHADONE HCL 10 MG TABLET (FOR DETOX USE ONLY) ONE (09:52)
[2019-03-12] MEDS ORDERED: METHADONE HCL 5 MG TABLET (FOR DETOX USE ONLY) ONE (09:53)
[2019-03-12] MEDS ORDERED: METHADONE (DETOX) 10 MG, METHADONE (DETOX) 5 MG PO ONE (10:00)
[2019-03-12] MEDS: PRENATAL VITAMINS W/ FOLIC ACID TABLET (FP) PO SCH (10:58)
[2019-03-12] MEDS: NICOTINE 21 MG/24 HOURS TOPICAL PATCH TD SCH (10:58)
[2019-03-12] MEDS: diazePAM 5 MG TABLET PO PRN ×2 (10:58→15:48)
--- NOTE | 2019-03-12 12:11 | PN ---
[facility] CIWA - CIWA Score Nausea/Vomitin-Mild Nausea/No Vomiting Muscle Tremors: 1-None Visible, but [place] Anxiety: 2 Agitation: 2 Paroxysmal Sweats: No Perspiration Orientation: 1-Uncertain about Date Tacttile Disturbances: 1-Very Mild Itch/Numbness Auditory Disturbances: 0-None Visual Disturbances: 0-None Headache: 1-Very Mild CIWA-Ar Total Score: 9 BHS COWS - Scale Resting Pulse: 0= [place] 80 or Below Sweatin= No chills or Flushing Restless Observation: 1= Difficult to Sit Still Pupil Size: 1= Pupils >than Normal Bone or Joint Aches: 1= Mild Discomfort Runny Nose/ Eye Tearin= Nasal Congestion GI Upset > 30mins: 1= Stomach Cramp Tremor Observation of Outstretched Hands: 1= Tremor [place], Not Seen Yawning Observation: 1= 1-2x During Session Anxiety or Irritability: 2=Irritable/Anxious Goose Flesh Skin: 0=Smooth Skin COWS Score: 9 [facility] Progress Note (SOAP) Subjective: alert,irritable,anxious,interrupted sleep,pain in the body and back Objective: 03/12/19 12:10 Vital Signs Temperature 98.2 F 03/12/19 10:58 Pulse Rate 58 L 03/12/19 10:58 Respiratory Rate 20 03/12/19 10:58 Blood Pressure 139/71 03/12/19 10:58 O2 Sat by Pulse Oximetry (%) Assessment: 03/12/19 12:10 withdrawal symptom Plan: continue detox methadone and valium regimen
[2019-03-12] MEDS: THIAMINE HCL 100 MG TABLET (FP) PO SCH (21:34)
[2019-03-13] MEDS ORDERED: METHADONE HCL 10 MG TABLET (FOR DETOX USE ONLY) PO ONE (10:00)
[2019-03-13] MEDS: PRENATAL VITAMINS W/ FOLIC ACID TABLET (FP) PO SCH (10:52)
[2019-03-13] MEDS: NICOTINE 21 MG/24 HOURS TOPICAL PATCH TD SCH (10:52)
[2019-03-13] MEDS: hydrOXYzine PAMOATE 25 MG CAPSULE (FP) PO PRN ×2 (10:54→18:13)
--- NOTE | 2019-03-13 16:36 | PN ---
S CIWA - CIWA Score Nausea/Vomitin-No Nausea/No Vomiting Muscle Tremors: None Anxiety: 2 Agitation: 2 Paroxysmal Sweats: No Perspiration Orientation: 2-Disoriented Date<2 days Tacttile Disturbances: 0-None Auditory Disturbances: 0-None Visual Disturbances: 0-None Headache: 0-None Present CIWA-Ar Total Score: 6 S COWS - Scale Resting Pulse: 0= [place] 80 or Below Sweatin= No chills or Flushing Restless Observation: 1= Difficult to Sit Still Pupil Size: 0= Normal to Room Light Bone or Joint Aches: 0= None Runny Nose/ Eye Tearin= None GI Upset > 30mins: 0= None Tremor Observation of Outstretched Hands: 0= None Yawning Observation: 1= 1-2x During Session Anxiety or Irritability: 2=Irritable/Anxious Goose Flesh Skin: 0=Smooth Skin COWS Score: 4 S Progress Note (SOAP) Subjective: Anxious (Mild). Objective: PATIENT A & O X 2 (UNCERTAIN ABOUT CURRENT DAY/ DATE). PATIENT OBSERVED AMBULATING ON DETOX UNIT UNASSISTED. IN NO ACUTE DISTRESS. 03/13/19 16:34 Vital Signs Temperature 97.7 F 03/13/19 13:42 Pulse Rate 58 L 03/13/19 13:42 Respiratory Rate 18 03/13/19 13:42 Blood Pressure 124/79 03/13/19 13:42 O2 Sat by Pulse Oximetry (%) Laboratory Tests 03/10/19 03/10/19 08:00 08:00 WBC 9.1 RBC 4.21 Hgb 13.9 Hct 40.7 MCV 96.5 H MCH 33.0 MCHC 34.2 RDW 13.1 D Plt Count 170 MPV 9.7 D Sodium 138 Potassium 4.1 Chloride 102 Carbon Dioxide 33 H Anion Gap 4 L BUN 11.0 Creatinine 0.7 Est GFR (CKD-EPI)AfAm 126.64 Est GFR (CKD-EPI)NonAf 109.27 Random Glucose 90 Calcium 9.2 Total Bilirubin 0.5 AST 20 ALT 25 Alkaline Phosphatase 67 Total Protein 6.1 L Albumin 3.2 L LABS NOTED. Assessment: 03/13/19 16:35 WITHDRAWAL SYMPTOMS. Plan: CONTINUE DETOX. PATIENT SCHEDULED FOR D/C FROM DETOX UNIT TOMORROW.
[2019-03-13 20:58] VITALS: TEMP 98.1
[2019-03-13] MEDS: THIAMINE HCL 100 MG TABLET (FP) PO SCH (21:42)
[2019-03-14] MEDS ORDERED: METHADONE HCL 5 MG TABLET (FOR DETOX USE ONLY) PO ONE (06:00)
[2019-03-14 06:28] VITALS: BP 130/64; PULSE 56
[2019-03-14] MEDS: hydrOXYzine PAMOATE 25 MG CAPSULE (FP) PO PRN (06:50)
--- NOTE | 2019-03-14 09:39 | DS ---
[facility] Detox Discharge Summary Admission Date: 03/09/19 Discharge Date: 03/14/19 - History Present History: Alcohol Dependence, Cannabis Dependence, Cocaine Dependence, Opioid Dependence - Physical Exam Results Vital Signs: Vital Signs Temperature 98.1 F 03/14/19 06:28 Pulse Rate 56 L 03/14/19 06:28 Respiratory Rate 18 03/14/19 06:28 Blood Pressure 130/64 03/14/19 06:28 O2 Sat by Pulse Oximetry (%) Pertinent Admission Physical Exam Findings: pt arrived in withdrawals - Treatment Hospital Course: Detox Protocol Followed, Detoxed Safely, Responded well, Discharged Condition Good, Rehab Referral Accepted Patient has Accepted a Rehab Referral to: pt declined rehab; referreal provided - Medication Discharge Medications: Ambulatory Orders NK [No Known Home Medication] 06/16/18 - Diagnosis (1) Alcohol dependence with uncomplicated withdrawal Current Visit: Yes Status: Chronic (2) Cannabis abuse, uncomplicated Current Visit: Yes Status: Chronic (3) Cocaine dependence Current Visit: Yes Status: Chronic Qualifiers: Substance use status: uncomplicated Qualified Code(s): F14.20 - Cocaine dependence, uncomplicated (4) Non compliance w medication regimen Current Visit: Yes Status: Acute (5) Opioid dependence with withdrawal Current Visit: Yes Status: Chronic (6) Bipolar II disorder Current Visit: Yes Status: Chronic (7) Nicotine dependence Current Visit: Yes Status: Chronic Qualifiers: Nicotine product type: cigarettes Substance use status: uncomplicated Qualified Code(s): F17.210 - Nicotine dependence, cigarettes, uncomplicated (8) Homeless Current Visit: Yes Status: Suspected (9) Substance induced mood disorder Current Visit: Yes Status: Suspected (10) Opioid dependence Current Visit: Yes Status: Acute Qualifiers: Substance use status: uncomplicated Qualified Code(s): F11.20 - Opioid dependence, uncomplicated - AMA Did Patient Leave Against Medical Advice: No
== END 2019-03-14 08:33 | disposition home or self-care (01) | DRG 773 ==
LOC: YASAS 13:13 → Y6N 21:03
PROVIDERS: ADMIT Surgery; ATTEND Surgery
PROC: HZ2ZZZZ Detoxification Services for Substance Abuse Treatment (ICD-10-PCS; principal; 2019-03-09)
DX: F11.23 Opioid dependence with withdrawal (principal); F10.230 Alcohol dependence with withdrawal, uncomplicated; F14.20 Cocaine dependence, uncomplicated; F12.10 Cannabis abuse, uncomplicated; F17.210 Nicotine dependence, cigarettes, uncomplicated; F31.81 Bipolar II disorder; F19.24 Other psychoactive substance dependence with psychoactive substance-induced mood disorder; Z91.14 Patient's other noncompliance with medication regimen; Z59.0 Homelessness
CPT/HCPCS: 36415; 80053; 85027

== ENCOUNTER 2020-03-21 15:13 | Inpatient (IN) | payer OTHER ==
--- NOTE | 2020-03-21 15:38 | BHS.RME ---
Substance Use & Tx History - Substance Use History Alcohol Substance amount: 3 pints Rum or Mi Frequency of use: Daily Substance route: Oral Date of Last Use: 03/21/20 Heroin Substance amount: 15 bags Frequency of use: Daily Substance route: Inhalation (ex: sniffing or snorting) Date of Last Use: 03/21/20 Cocaine-Crack Substance amount: $20 Frequency of use: Daily Substance route: Smoking Date of Last Use: 03/20/20 - Last Treatment Date of last treatment: 03/09 to 03/14/20 Where was last treatment: Detox Physical/Psych/Mental Status - Behavior General Behavior: Decreased activity Eye Contact: Normal - Cooperativeness Cooperativeness: Cooperative - Thinking Thought Processes: Tight Thought content: Future oriented - Physical Health Problems Is patient presently having any pain?: Yes (right knee) Does patient presently have any injuries (include location): No Does patient currently have a fever: No COWS - Scale Resting Pulse: 0= [place] 80 or Below (pt recently used both alcohol and heroin which obscures full extent of withdrawal) Sweatin= Chills/Flushing Restless Observation: 0= Sits Still Pupil Size: 0= Normal to Room Light Bone or Joint Aches: 1= Mild Discomfort Runny Nose/ Eye Tearin= Nasal Congestion GI Upset > 30mins: 0= None Tremor Observation: 0= None Yawning Observation: 0= None Anxiety or Irritability: 1=Feels Anxious/Irritable Goose Flesh Skin: 0=Smooth Skin COWS Score: 4 CIWA Nausea/Vomitin-No Nausea/No Vomiting Muscle Tremors: None Anxiety: 1-Mildly Anxious Agitation: 0-Normal Activity Paroxysmal Sweats: No Perspiration Orientation: 0-Oriented Tacttile Disturbances: 0-None Auditory Disturbances: 0-None Visual Disturbances: 1-Very Mild Sensitivity Headache: 0-None Present CIWA-Ar Total Score: 2
[2020-03-21 17:20] VITALS: BMI 32.8
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
[2020-03-21] MEDS ORDERED: NICOTINE POLACRILEX 2 MG GUM BUC PRN (18:19)
[2020-03-21] MEDS ORDERED: cloNIDine HCL 0.1 MG TABLET PO PRN (18:19)
[2020-03-21] MEDS ORDERED: MAGNESIUM HYDROX 2400MG/30ML ORAL SUSPENSION 30 ML CUP PO PRN (18:19)
[2020-03-21] MEDS ORDERED: MAGNESIUM CITRATE 300 ML BOTTLE PO PRN (18:19)
[2020-03-21] MEDS ORDERED: chlordiazePOXIDE HCL 25 MG CAPSULE PO PRN (18:19)
[2020-03-21] MEDS ORDERED: ONDANSETRON *ODT* 4 MG TABLET SL PRN (18:19)
[2020-03-21] MEDS ORDERED: ACETAMINOPHEN 325 MG TABLET (FP) PO PRN ×2 (18:19)
[2020-03-21] MEDS ORDERED: BISMUTH SUBSALICYLATE 524 MG/30 ML UD PO PRN (18:19)
[2020-03-21] MEDS ORDERED: MAG HYDROX/AL HYDROX/SIMETH 30 ML UNIT-DOSE CUP PO PRN (18:19)
[2020-03-21] MEDS ORDERED: MENTHOL/PHENOL 1 EACH UD MM PRN (18:19)
[2020-03-21] MEDS ORDERED: METHADONE HCL 10 MG TABLET (FOR DETOX USE ONLY) PO ONE (19:00)
--- OUTSIDE RECORDS SUMMARY | 2020-03-21 20:26 | XMS ---
:1965 Author Organization [facility] Support Name Relationship Address Phone CODIE KENDRICK [place] [address] UE Unavailable Unavailable Unavailable LEA KENDRICK GRANDMOTHER [address] [place] [address] Re-disclosure Warning The records that you are about to access may contain information from federally- assisted alcohol or drug abuse programs. If such information is present, then the following federally mandated warning applies: This information has been disclosed to you from records protected by federal confidentiality rules (42 CFR part 2). The federal rules prohibit you from making any further disclosure of this information unless further disclosure is expressly permitted by the written consent of the person to whom it pertains or as otherwise permitted by 42 CFR part 2. A general authorization for the release of medical or other information is NOT sufficient for this purpose. The Federal rules restrict any use of the information to criminally investigate or prosecute any alcohol or drug abuse patient.The records that you are about to access may contain highly sensitive health information, the redisclosure of which is protected by Article 27-F of the [facility] Public Health law. If you continue you may haveaccess to information: Regarding HIV / AIDS; Provided by facilities licensed or operated by the [facility] Office of Mental Health; or Provided by the [facility] Office for People With Developmental Disabilities. If such information is present, then the following [facility] mandated warning applies: This information has been disclosed to you from confidential records which are protected by state law. State law prohibits you from making any further disclosure of this information without the specific written consent of the person to whom it pertains, or as otherwise permitted by law. Any unauthorized further disclosure in violation of state law may result in a fine or custodial sentence or both. A general authorization for the release of medical or other information is NOT sufficient authorization for further disclosure. Encounters Encounter Providers Location Date Indications Data Source(s ) Emergency H 11/10/2018 01:50:00 [facility] EDT Center Insurance Providers Payer name Policy type Policy ID Covered Covered republican's Policy P alphonse / Coverage republican ID relationship to [place] [employer] ormation type martinez BE[employer]ON [id number] SP [id number] [employer]FF [place] [id number] SP [id number] 900 [employer] STRGY-AFF [place] O [id number] 01 [id number] HEALTH PLAN Problems, Conditions, and Diagnoses Code Display Name Description Problem Type Effective Data Sour ce(s) Dates F10.10 Alcohol abuse, ALCOHOL ABUSE, Diagnosis 11/10/2018 [facility] uncomplicated UNCOMPLICATED 01:50:00 [facility] EDT F19.10 Other psychoactive OTHER PSYCHOACTIVE Diagnosis 9 [facility] substance abuse, SUBSTANCE ABUSE, 01:50:00 AM edical [place] uncomplicated UNCOMPLICATED EDT Results ID Date Data Source Urinalysis 11/10/2018 02:48:00 AM EDT [facility] Name Value Range Interpretation Description Data Sup porting Code Source(s) Document(s ) UNK CLEAR <content Saint styleCode="Josefa Umu d">Urine Medical Clarity Center </content>MONIKA R <content styleCode="Sarah lics"> (CLEAR )</content> Glucose NEGATIVE <content [facility] [Mass/volume] styleCode="Josefa Umu in Urine by d">Urine Medical Test strip Glucose Center </content>NEGA TIVE MG/DL<content styleCode="Sarah lics"> (NEGATIVE MG/DL)</conten t> Ketones NEGATIVE <content [facility] [Mass/volume] styleCode="Josefa Umu in Urine by d">Urine Medical Test strip Ketone Center </content>NEGA TIVE MG/DL<content styleCode="Sarah lics"> (NEGATIVE MG/DL)</conten t> Color of Urine YELLOW <content Saint styleCode="Josefa Umu d">Color, Medical Urine Center </content>YELL OW <content styleCode="Sarah lics"> (YELLOW )</content> UNK NEGATIVE <content Saint styleCode="Josefa Umu d">Urine Medical Bilirubin Center </content>NEGA TIVE <content styleCode="Sarah lics"> (NEGATIVE )</content> Urobilinogen 0.2-1.0 <content [facility] [Units/volume] styleCode="Josefa Gutierrezs in Urine by d">Urine Medical Test strip Urobilinogen Center </content>0.2 MG/DL<content styleCode="Sarah lics"> (0.2-1.0 MG/DL)</conten t> Protein NEGATIVE <content Saint [Mass/volume] styleCode="Josefa Umu in Urine by d">Urine Medical Test strip Protein Center </content>NEGA TIVE MG/DL<content styleCode="Sarah lics"> (NEGATIVE MG/DL)</conten t> Hemoglobin NEGATIVE <content Saint [Presence] in styleCode="Josefa Gutierrezs Urine by Test d">Urine Blood Medical strip </content>NEGA Center TIVE <content styleCode="Sarah lics"> (NEGATIVE )</content> Specific 1.015-1.02 <content [facility] gravity of 5 styleCode="Josefa Gutierrezs Urine by Test d">Urine Medical strip Specific Center [place] </content>1.01 5 <content styleCode="Sarah lics"> (1.015-1.025 )</content> pH of Urine by 4.5-8.0 <content Saint Test strip styleCode="Josefa Umu d">Urine pH Medical </content>6.0 Center <content styleCode="Sarah lics"> (4.5-8.0 )</content> Nitrite NEGATIVE <content Saint [Presence] in styleCode="Josefa Gutierrezs Urine by Test d">Urine Medical strip Nitrite Center </content>NEGA TIVE <content styleCode="Sarah lics"> (NEGATIVE )</content> Leukocyte NEGATIVE <content Saint esterase styleCode="Josefa Gutierrezs [Presence] in d">Urine Medical Urine by Test Leukocyte Center strip </content>NEGA TIVE <content styleCode="Sarah lics"> (NEGATIVE )</content> ID Date Data Source CHMROUTINECCDA 11/10/2018 02:48:00 AM EDT [facility] Name Value Range Interpretation Description Data Sup porting Code Source(s) Document(s ) Cannabinoids <content Saint [Presence] in styleCode="Josefa Sanz Urine by Screen d">Cannabinoid Medical method >50 ng/mL s Center </content>NEGA TIVE NG/ML (Reference Range: not available)<br/ > Procedure Social History Code Duration Value Status Description Data Source(s ) Smoking Unknown if ever completed Unknown if ever Salvatore Sanz smoked smoked Medical Center Vital Signs ID Date Data Source UNK Name Value Range Interpretation Code Description Data Source(s) Body temperature 36.245894 36.002511 [facility] Respiratory rate 18 /min 18 /min [facility] Oxygen saturation 98 % 98 % [facility] in Arterial blood [facility] Center by Pulse oximetry Heart rate 58 /min 58 /min [facility] Diastolic blood 77 mm[Hg] 77 mm[Hg] [facility] pressure Medical Center Systolic blood 144 mm[Hg] 144 mm[Hg] [facility] pressure Medical Center
[2020-03-21] MEDS: MELATONIN 5 MG TABLETS PO SCH (22:55)
[2020-03-21] MEDS: THIAMINE HCL 100 MG TABLET (FP) PO SCH (22:55)
[2020-03-21] MEDS: chlordiazePOXIDE HCL 25 MG CAPSULE PO SCH (22:55)
[2020-03-22] MEDS: chlordiazePOXIDE HCL 25 MG CAPSULE PO SCH ×4 (05:46→22:48)
[2020-03-22] MEDS: IBUPROFEN 400 MG TABLET (FP) PO PRN (05:48)
[2020-03-22] MEDS ORDERED: METHADONE HCL 10 MG TABLET (FOR DETOX USE ONLY) ONE (09:42)
[2020-03-22] MEDS ORDERED: METHADONE HCL 5 MG TABLET (FOR DETOX USE ONLY) ONE (09:42)
[2020-03-22 09:45] LABS: HEMOGLOBIN 14.7 GM/dL (11.7-16.9); MCH 33.2 pg (25.7-33.7); MCHC 34.2 g/dl (32.0-35.9); MEAN CELL VOLUME 97.2 fl (80-96); MEAN PLT VOLUME 9.9 fl (7.5-11.1); PLATELET COUNT 180 K/MM3 (134-434); RBC 4.43 M/mm3 (4.00-5.60); RDW 13.4 % (11.9-15.9); WHITE BLOOD COUNT 9.9 K/mm3 (4.0-10.0)
[2020-03-22 09:55] LABS: ALBUMIN 3.3 g/dl (3.4-5.0); BLOOD UREA NITROGEN 13.5 mg/dL (7-18); CALCIUM 9.4 mg/dL (8.5-10.1); POTASSIUM 3.8 mmol/L (3.5-5.1)
[2020-03-22 09:59] LABS: BILIRUBIN,TOTAL 0.6 mg/dL (0.2-1); CREATININE 0.8 mg/dL (0.55-1.3); TOT PROT 6.5 g/dl (6.4-8.2)
[2020-03-22] MEDS ORDERED: METHADONE (DETOX) 20 MG, METHADONE (DETOX) 5 MG PO ONE (10:00)
[2020-03-22] MEDS: NICOTINE 14 MG/24 HOURS TOPICAL PATCH TD SCH (11:09)
[2020-03-22] MEDS: PRENATAL VITAMINS W/ FOLIC ACID TABLET (FP) PO SCH (11:09)
--- NOTE | 2020-03-22 14:43 | PN ---
[facility] CIWA - CIWA Score Nausea/Vomitin-No Nausea/No Vomiting Muscle Tremors: None Anxiety: 3 Agitation: 3 Paroxysmal Sweats: 2 Orientation: 0-Oriented Tacttile Disturbances: 0-None Auditory Disturbances: 0-None Visual Disturbances: 1-Very Mild Sensitivity Headache: 0-None Present CIWA-Ar Total Score: 9 S COWS - Scale Resting Pulse: 0= [place] 80 or Below Sweatin= Chills/Flushing Restless Observation: 1= Difficult to Sit Still Pupil Size: 0= Normal to Room Light Bone or Joint Aches: 0= None Runny Nose/ Eye Tearin= None GI Upset > 30mins: 0= None Tremor Observation of Outstretched Hands: 0= None Yawning Observation: 1= 1-2x During Session Anxiety or Irritability: 2=Irritable/Anxious Goose Flesh Skin: 3=Piloerection COWS Score: 8 S Progress Note (SOAP) Subjective: Anxious, Restless, Sweating, Body Aches. Objective: Patient A & O X 3, Observed Ambulating on Detox Unit Unassisted. In No Acute Distress. 03/22/20 14:46 Vital Signs Temperature 97.3 F L 03/22/20 12:54 Pulse Rate 56 L 03/22/20 12:54 Respiratory Rate 18 03/22/20 12:54 Blood Pressure 125/69 03/22/20 12:54 O2 Sat by Pulse Oximetry (%) 99 03/22/20 12:54 Laboratory Tests 03/22/20 03/22/20 03/22/20 07:30 07:30 07:30 WBC 9.9 RBC 4.43 Hgb 14.7 Hct 43.0 MCV 97.2 H MCH 33.2 MCHC 34.2 RDW 13.4 Plt Count 180 MPV 9.9 Sodium 140 Potassium 3.8 Chloride 105 Carbon Dioxide 30 Anion Gap 5 L BUN 13.5 Creatinine 0.8 Est GFR (CKD-EPI)AfAm 119.04 Est GFR (CKD-EPI)NonAf 102.71 Random Glucose 114 H Calcium 9.4 Total Bilirubin 0.6 AST 19 ALT 20 Alkaline Phosphatase 86 Total Protein 6.5 Albumin 3.3 L Syphilis Serology Non-reactive Lab Results noted. Assessment: 03/22/20 14:46 WITHDRAWAL SYMPTOMS. Plan: Continue Detox. Increase Daily Oral Water Intake.
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
[2020-03-22] MEDS: AMMONIUM LACTATE 12% LOTION 225 GM BOTTLE TP SCH ×2 (15:30→22:48)
[2020-03-22] MEDS: TOLNAFTATE 1% CREAM 15 GM TUBE TP SCH ×2 (15:30→22:48)
[2020-03-22] MEDS: MELATONIN 5 MG TABLETS PO SCH (22:48)
[2020-03-22] MEDS: THIAMINE HCL 100 MG TABLET (FP) PO SCH (22:48)
[2020-03-23] MEDS: chlordiazePOXIDE HCL 25 MG CAPSULE PO SCH ×4 (05:18→22:45)
[2020-03-23] MEDS ORDERED: METHADONE HCL 10 MG TABLET (FOR DETOX USE ONLY) PO ONE ×2 (06:00→10:00)
[2020-03-23] MEDS: METHOCARBAMOL 500 MG TABLET PO PRN ×2 (06:45→22:47)
[2020-03-23] MEDS ORDERED: ARIPiprazole 5 MG TABLET PO SCH (10:00)
[2020-03-23] MEDS: NICOTINE 14 MG/24 HOURS TOPICAL PATCH TD SCH (10:18)
[2020-03-23] MEDS: PRENATAL VITAMINS W/ FOLIC ACID TABLET (FP) PO SCH (10:18)
[2020-03-23] MEDS: AMMONIUM LACTATE 12% LOTION 225 GM BOTTLE TP SCH ×2 (10:19→22:45)
[2020-03-23] MEDS: IBUPROFEN 400 MG TABLET (FP) PO PRN ×2 (10:23→22:46)
[2020-03-23] MEDS ORDERED: LIDOCAINE 5% TOPICAL PATCH TP SCH (11:15)
--- NOTE | 2020-03-23 12:26 | PN ---
S CIWA - CIWA Score Nausea/Vomitin-Mild Nausea/No Vomiting Muscle Tremors: 2 Anxiety: 2 Agitation: 1-Slight > Activity Paroxysmal Sweats: 2 Orientation: 0-Oriented Tacttile Disturbances: 0-None Auditory Disturbances: 0-None Visual Disturbances: 0-None Headache: 0-None Present CIWA-Ar Total Score: 8 BHS COWS - Scale Resting Pulse: 0= [place] 80 or Below Sweatin= Chills/Flushing Restless Observation: 0= Sits Still Pupil Size: 0= Normal to Room Light Bone or Joint Aches: 1= Mild Discomfort Runny Nose/ Eye Tearin= Runny Nose/Eyes GI Upset > 30mins: 1= Stomach Cramp Tremor Observation of Outstretched Hands: 2= Slight Tremor Visible Yawning Observation: 0= None Anxiety or Irritability: 1=Feels Anxious/Irritable Goose Flesh Skin: 0=Smooth Skin COWS Score: 8 BHS Progress Note (SOAP) Subjective: Back pain, runny nose; patient requesting medication for back pain Objective: 03/23/20 12:27 Last Vital Signs Temp Pulse Resp BP Pulse Ox 97.3 F L 61 18 145/80 99 03/23/20 09:00 03/23/20 09:00 03/23/20 09:00 03/23/20 09:00 03/23/20 09:00 Elevated b/p noted Laboratory Tests 03/21/20 03/22/20 03/22/20 18:45 07:30 07:30 WBC 9.9 RBC 4.43 Hgb 14.7 Hct 43.0 MCV 97.2 H MCH 33.2 MCHC 34.2 RDW 13.4 Plt Count 180 MPV 9.9 Sodium Potassium Chloride Carbon Dioxide Anion Gap BUN Creatinine Est GFR (CKD-EPI)AfAm Est GFR (CKD-EPI)NonAf Random Glucose Calcium Total Bilirubin AST ALT Alkaline Phosphatase Total Protein Albumin Syphilis Serology Non-reactive COVID-19 ([facility]) Not detected 03/22/20 07:30 WBC RBC Hgb Hct MCV MCH MCHC RDW Plt Count MPV Sodium 140 Potassium 3.8 Chloride 105 Carbon Dioxide 30 Anion Gap 5 L BUN 13.5 Creatinine 0.8 Est GFR (CKD-EPI)AfAm 119.04 Est GFR (CKD-EPI)NonAf 102.71 Random Glucose 114 H Calcium 9.4 Total Bilirubin 0.6 AST 19 ALT 20 Alkaline Phosphatase 86 Total Protein 6.5 Albumin 3.3 L Syphilis Serology COVID-19 ([facility]OHANNES) Labs reviewed: serum glucose 114 (high) Assessment: 03/23/20 12:29 Withdrawal sxs Noted with elevated blood pressure and hyperglycemia, c/o back pain Plan: Continue detox Encouraged PO water intake Elevated b/p: denies HTN, could be r/t withdrawal, monitor b/p, patient is on clonidine prn Hyperglycemia: could be r/t withdrawal, repeat fasting glucose, send A1c Back pain: continue tylenol/motrin, start lidocaine patch
[2020-03-23] MEDS: TOLNAFTATE 1% CREAM 15 GM TUBE TP SCH ×2 (15:23→22:44)
--- NOTE | 2020-03-23 21:42 | EKG ---
Test Reason : Blood Pressure : / mmHG Vent. Rate : 061 BPM Atrial Rate : 061 BPM P-R Int : 140 ms QRS Dur : 086 ms QT Int : 406 ms P-R-T Axes : 057 001 013 degrees QTc Int : 408 ms NORMAL SINUS RHYTHM WITH SINUS ARRHYTHMIA NORMAL ECG WHEN COMPARED WITH ECG OF 16-JUN-2018 15:50, NO SIGNIFICANT CHANGE WAS FOUND Confirmed by DARIO CANTRELL MD ([id number]) on 03/23/2020 9:41:41 PM Referred By: Confirmed By:DARIO CANTRELL MD
[2020-03-23] MEDS ORDERED: LIDOCAINE PATCH REMOVAL MC SCH (22:00)
[2020-03-23] MEDS: MELATONIN 5 MG TABLETS PO SCH (22:44)
[2020-03-23] MEDS: THIAMINE HCL 100 MG TABLET (FP) PO SCH (22:44)
[2020-03-24] MEDS ORDERED: chlordiazePOXIDE HCL 10 MG CAPSULE PO PRN
[2020-03-24] MEDS ORDERED: chlordiazePOXIDE HCL 10 MG CAPSULE PO SCH (05:00)
[2020-03-24] MEDS ORDERED: METHADONE (DETOX) 10 MG, METHADONE (DETOX) 5 MG PO ONE ×2 (06:00→10:00)
[2020-03-24] MEDS ORDERED: METHADONE HCL 10 MG TABLET (FOR DETOX USE ONLY) ONE (06:49)
[2020-03-24] MEDS ORDERED: METHADONE HCL 5 MG TABLET (FOR DETOX USE ONLY) ONE (06:49)
[2020-03-24 06:56] VITALS: BP 156/100; PULSE 63; TEMP 97.8
--- NOTE | 2020-03-24 08:43 | DS ---
[facility] Detox Discharge Summary Admission Date: 03/21/20 Discharge Date: 03/24/20 - History Present History: Alcohol Dependence, Cocaine Dependence, Opioid Dependence - Physical Exam Results Vital Signs: Vital Signs Temperature 97.8 F 03/24/20 06:55 Pulse Rate 63 03/24/20 06:55 Respiratory Rate 18 03/24/20 06:55 Blood Pressure 156/100 03/24/20 06:55 O2 Sat by Pulse Oximetry (%) 97 03/23/20 22:33 Pertinent Admission Physical Exam Findings: Vital Signs Temperature 97.8 F 03/24/20 06:55 Pulse Rate 63 03/24/20 06:55 Respiratory Rate 18 03/24/20 06:55 Blood Pressure 156/100 03/24/20 06:55 O2 Sat by Pulse Oximetry (%) 97 03/23/20 22:33 Laboratory Tests 03/21/20 03/22/20 03/22/20 18:45 07:30 07:30 WBC 9.9 RBC 4.43 Hgb 14.7 Hct 43.0 MCV 97.2 H MCH 33.2 MCHC 34.2 RDW 13.4 Plt Count 180 MPV 9.9 Sodium Potassium Chloride Carbon Dioxide Anion Gap BUN Creatinine Est GFR (CKD-EPI)AfAm Est GFR (CKD-EPI)NonAf Random Glucose Calcium Total Bilirubin AST ALT Alkaline Phosphatase Total Protein Albumin Syphilis Serology Non-reactive COVID-19 ([facility]OHANNES) Not detected 03/22/20 07:30 WBC RBC Hgb Hct MCV MCH MCHC RDW Plt Count MPV Sodium 140 Potassium 3.8 Chloride 105 Carbon Dioxide 30 Anion Gap 5 L BUN 13.5 Creatinine 0.8 Est GFR (CKD-EPI)AfAm 119.04 Est GFR (CKD-EPI)NonAf 102.71 Random Glucose 114 H Calcium 9.4 Total Bilirubin 0.6 AST 19 ALT 20 Alkaline Phosphatase 86 Total Protein 6.5 Albumin 3.3 L Syphilis Serology COVID-19 (YOHANNES) aaox3 ambulating no acute distress lungs CTA - Treatment Hospital Course: Detox Protocol Followed, Detoxed Safely, Responded well, Discharged Condition Good, Rehab Referral Accepted - Medication Discharge Medications: Ambulatory Orders NK [No Known Home Medication] 06/16/18 - Diagnosis (1) Alcohol dependence with uncomplicated withdrawal Current Visit: Yes Status: Chronic (2) Opioid dependence with withdrawal Current Visit: Yes Status: Chronic (3) Arthritis of both knees Current Visit: Yes Status: Chronic (4) Bipolar II disorder Current Visit: Yes Status: Chronic (5) Cocaine dependence Current Visit: Yes Status: Chronic Qualifiers: Substance use status: uncomplicated Qualified Code(s): F14.20 - Cocaine dependence, uncomplicated (6) Depression Current Visit: Yes Status: Chronic Qualifiers: Depression Type: unspecified Qualified Code(s): F32.9 - Major depressive disorder, single episode, unspecified (7) History of posttraumatic stress disorder (PTSD) Current Visit: Yes Status: Chronic (8) Nicotine dependence Current Visit: Yes Status: Chronic Qualifiers: Nicotine product type: cigarettes Substance use status: uncomplicated Qualified Code(s): F17.210 - Nicotine dependence, cigarettes, uncomplicated (9) Non compliance w medication regimen Current Visit: Yes Status: Chronic (10) Opioid dependence Current Visit: No Status: Acute Qualifiers: Substance use status: uncomplicated Qualified Code(s): F11.20 - Opioid dependence, uncomplicated (11) Cannabis abuse, uncomplicated Current Visit: No Status: Chronic (12) Homeless Current Visit: No Status: Suspected (13) Substance induced mood disorder Current Visit: No Status: Suspected - AMA Did Patient Leave Against Medical Advice: No
[2020-03-25] MEDS ORDERED: chlordiazePOXIDE HCL 10 MG CAPSULE PO SCH (05:00)
[2020-03-25] MEDS ORDERED: METHADONE HCL 10 MG TABLET (FOR DETOX USE ONLY) PO ONE ×2 (06:00→10:00)
[2020-03-26] MEDS ORDERED: chlordiazePOXIDE HCL 10 MG CAPSULE PO ONE (05:00)
[2020-03-26] MEDS ORDERED: METHADONE HCL 5 MG TABLET (FOR DETOX USE ONLY) PO ONE (06:00)
== END 2020-03-24 09:03 | disposition home or self-care (01) | DRG 773 ==
LOC: YASAS 15:13 → Y6N 18:52
PROVIDERS: ADMIT Allergy & Immunology; ATTEND Allergy & Immunology
PROC: HZ2ZZZZ Detoxification Services for Substance Abuse Treatment (ICD-10-PCS; principal; 2020-03-21)
DX: F10.230 Alcohol dependence with withdrawal, uncomplicated (principal); F11.23 Opioid dependence with withdrawal; F14.20 Cocaine dependence, uncomplicated; F12.20 Cannabis dependence, uncomplicated; F17.210 Nicotine dependence, cigarettes, uncomplicated; F31.81 Bipolar II disorder; F19.24 Other psychoactive substance dependence with psychoactive substance-induced mood disorder; F43.10 Post-traumatic stress disorder, unspecified; M17.0 Bilateral primary osteoarthritis of knee; M54.89 Other dorsalgia; Z91.14 Patient's other noncompliance with medication regimen; Z56.0 Unemployment, unspecified; Z59.0 Homelessness
CPT/HCPCS: 36415; 80053; 85027; 86780; 93005; 93010; U0003